=== PATIENT | female | born 1995 | race Caucasian/White ===

== ENCOUNTER 2017-10-31 02:07 | Emergency (ER) | payer SELFPAY ==
--- NOTE | 2017-10-31 02:18 | ER Report ---
History and Physical Time Seen By MD: 02:18 Hx. of Stated Complaint: pt started having right sided abdominal and flank pain last night. pt has been having "difficulty" urinating for the past week. HPI/ROS CHIEF COMPLAINT: Abdominal pain HISTORY OF PRESENT ILLNESS: This is a 22-year-old female. She's been having abdominal and flank pain since last night. This is on the right side. Worsens with movement. Difficulty urinating for about 3 weeks now. No history of kidney stones. She has had a few urinary tract infections and states that this is a little different because she is not having any dysuria. She did have an several weeks ago but never had a follow-up. Her bleeding has decreased to some spotting the last few days. She denies any other discharge. No fevers or chills. She has noticed a little heart racing. She was looking up symptoms on [employer] and is worried that she may have septic shock. No shortness of breath or chest pain. No nausea or vomiting. Allergies: Coded Allergies: No Known Drug Allergies (Unverified , 10/31/17) Home Meds Active Scripts Ondansetron (ZOFRAN ODT) 4 Mg Tab.rapdis, 4 MG PO Q6H Y for NAUSEA/VOMITING, # 20 TAB.MAIK 0 Refills Prov:BETSY RIVERA MD 10/31/17 Hydrocodone Bit/Acetaminophen (HYDROCODON-ACETAMINOPHEN 5-325) 1 Each Tablet, 1 EACH PO Q4H Y for PAIN, #12 TAB 0 Refills Prov:BETSY RIVERA MD 10/31/17 Sulfamethoxazole/Trimet 800-160 Mg Tab (BACTRIM DS TABLET) 1 Each Tablet, 1 TAB PO Q12H, #20 TAB 0 Refills Prov:BETSY RIVERA MD 10/31/17 Reviewed Nurses Notes: Yes Hx Substance Use Disorder: Yes Hx Alcohol Use: No Constitutional Vital Sign - Last 24 Hours 10/31/17 10/31/17 10/31/17 10/31/17 02:11 02:30 02:45 03:00 Temp 97.5 Pulse 103 108 100 103 Resp 18 B/P (MAP) 122/84 103/68 (80) 100/78 (85) Pulse Ox 98 95 99 94 O2 Delivery Room Air 10/31/17 10/31/17 10/31/17 10/31/17 03:45 04:00 04:15 05:22 Pulse 105 104 101 85 Resp 16 B/P (MAP) 107/71 (83) 102/78 (86) Pulse Ox 95 92 O2 Delivery Room Air Physical Exam General Appearance: The patient is alert. No acute distress. Non-toxic in appearance. Eyes: Pupils are equal, round. No pallor, injection or icterus. ENT: Mucous membranes are moist. Normal oral mucosa. Posterior oropharynx is normal. Neck: Supple and non tender. Respiratory: Lungs are clear to auscultation. Cardiovascular: Regular rate and rhythm. No murmurs, gallops or rubs. Normal capillary refill. Gastrointestinal: Abdomen is soft, tender in the right lower quadrant. Guarding but no rebound. Nondistended. Normal active bowel sounds. Has right-sided CVA tenderness. Neurological: Alert and oriented x3. Skin: Warm and dry. No rashes. Musculoskeletal: Extremities are nontender. No tenderness in palpation of the thoracic and lumbar spine and bacteria other than the CVA tenderness. DIFFERENTIAL DIAGNOSIS: After history and physical exam, differential diagnosis was considered for abdominal pain including but not limited to appendicitis, cholecystitis, gastritis and urinary tract infection. Medical Decision Making Data Points Result Diagram: 10/31/17 0240 10/31/17 0240 Laboratory Hematology Test 10/31/17 02:40 10/31/17 03:33 Red Blood Count 4.57 M/uL (4.17-5.56) Mean Corpuscular Volume 86.4 fL (80.0-96.0) Mean Corpuscular Hemoglobin 30.2 pg (26.0-33.0) Mean Corpuscular Hemoglobin Concent 34.9 g/dL (32.0-36.0) Red Cell Distribution Width 12.9 % (11.5-14.5) Mean Platelet Volume 8.5 fL (7.2-11.1) Neutrophils (%) (Auto) 65.7 % (39.4-72.5) Lymphocytes (%) (Auto) 23.5 % (17.6-49.6) Monocytes (%) (Auto) 6.9 % (4.1-12.4) Eosinophils (%) (Auto) 2.7 % (0.4-6.7) Basophils (%) (Auto) 1.2 % (0.3-1.4) Nucleated RBC Relative Count (auto) 0.0 /100WBC Neutrophils # (Auto) 7.0 K/uL (2.0-7.4) Lymphocytes # (Auto) 2.5 K/uL (1.3-3.6) Monocytes # (Auto) 0.7 K/uL (0.3-1.0) Eosinophils # (Auto) 0.3 K/uL (0.0-0.5) Basophils # (Auto) 0.1 K/uL (0.0-0.1) Nucleated RBC Absolute Count (auto) 0.00 K/uL Sodium Level 138 mmol/L (137-145) Potassium Level 3.7 mmol/L (3.5-5.0) Chloride Level 100 mmol/L (98-107) Carbon Dioxide Level 29 mmol/L (22-31) Blood Urea Nitrogen 13 mg/dl (7-18) Creatinine 0.60 mg/dl (0.52-1.04) Glomerular Filtration Rate Calc > 60.0 Random Glucose 114 mg/dl (75-110) Lactate 1.1 mmol/L (0.7-2.1) Calcium Level 9.1 mg/dl (8.4-10.2) Total Bilirubin 0.7 mg/dl (0.2-1.3) Aspartate Amino Transf (AST/SGOT) 22 U/L (0-35) Alanine Aminotransferase (ALT/SGPT) 22 U/L (0-56) Alkaline Phosphatase 58 U/L (0-126) C-Reactive Protein 2.9 mg/dl (<1.0) Total Protein 7.4 g/dl (6.3-8.2) Albumin 4.3 g/dl (3.5-5.0) Amylase Level 72 U/L (0-110) Lipase 38 U/L (23-300) Human Chorionic Gonadotropin, Qual Negative (NEGATIVE) Urine Color Yellow Urine Clarity Cloudy Urine pH 6.0 pH (4.8-9.5) Urine Specific [place] 1.046 Urine Protein 100 mg/dL (NEGATIVE) Urine Glucose (UA) Negative mg/dL (NEGATIVE) Urine Ketones Negative mg/dL (NEGATIVE) Urine Blood Negative (NEGATIVE) Urine Nitrite Positive (NEGATIVE) Urine Bilirubin Negative (NEGATIVE) Urine Urobilinogen 2.0 mg/dL (0.2-1.9) Urine Leukocyte Esterase Large (NEGATIVE) Urine RBC 6 /HPF (0-2/HPF) Urine WBC 679 /HPF (0-5/HPF) Urine WBC Clumps Few /HPF Urine Squamous Epithelial Cells Many /LPF (</=FEW) Urine Transitional Epithelial Cells Many /LPF (NONE-FEW) Urine Bacteria Few /HPF (NONE-FEW) Urine Mucus Few /HPF (NONE-FEW) Chemistry Test 10/31/17 02:40 10/31/17 03:33 White Blood Count 10.7 k/uL (4.5-11.0) Red Blood Count 4.57 M/uL (4.17-5.56) Hemoglobin 13.8 g/dL (12.0-16.0) Hematocrit 39.5 % (34.0-47.0) Mean Corpuscular Volume 86.4 fL (80.0-96.0) Mean Corpuscular Hemoglobin 30.2 pg (26.0-33.0) Mean Corpuscular Hemoglobin Concent 34.9 g/dL (32.0-36.0) Red Cell Distribution Width 12.9 % (11.5-14.5) Platelet Count 323 K/uL (150-450) Mean Platelet Volume 8.5 fL (7.2-11.1) Neutrophils (%) (Auto) 65.7 % (39.4-72.5) Lymphocytes (%) (Auto) 23.5 % (17.6-49.6) Monocytes (%) (Auto) 6.9 % (4.1-12.4) Eosinophils (%) (Auto) 2.7 % (0.4-6.7) Basophils (%) (Auto) 1.2 % (0.3-1.4) Nucleated RBC Relative Count (auto) 0.0 /100WBC Neutrophils # (Auto) 7.0 K/uL (2.0-7.4) Lymphocytes # (Auto) 2.5 K/uL (1.3-3.6) Monocytes # (Auto) 0.7 K/uL (0.3-1.0) Eosinophils # (Auto) 0.3 K/uL (0.0-0.5) Basophils # (Auto) 0.1 K/uL (0.0-0.1) Nucleated RBC Absolute Count (auto) 0.00 K/uL Glomerular Filtration Rate Calc > 60.0 Lactate 1.1 mmol/L (0.7-2.1) Calcium Level 9.1 mg/dl (8.4-10.2) Total Bilirubin 0.7 mg/dl (0.2-1.3) Aspartate Amino Transf (AST/SGOT) 22 U/L (0-35) Alanine Aminotransferase (ALT/SGPT) 22 U/L (0-56) Alkaline Phosphatase 58 U/L (0-126) C-Reactive Protein 2.9 mg/dl (<1.0) Total Protein 7.4 g/dl (6.3-8.2) Albumin 4.3 g/dl (3.5-5.0) Amylase Level 72 U/L (0-110) Lipase 38 U/L (23-300) Human Chorionic Gonadotropin, Qual Negative (NEGATIVE) Urine Color Yellow Urine Clarity Cloudy Urine pH 6.0 pH (4.8-9.5) Urine Specific [place] 1.046 Urine Protein 100 mg/dL (NEGATIVE) Urine Glucose (UA) Negative mg/dL (NEGATIVE) Urine Ketones Negative mg/dL (NEGATIVE) Urine Blood Negative (NEGATIVE) Urine Nitrite Positive (NEGATIVE) Urine Bilirubin Negative (NEGATIVE) Urine Urobilinogen 2.0 mg/dL (0.2-1.9) Urine Leukocyte Esterase Large (NEGATIVE) Urine RBC 6 /HPF (0-2/HPF) Urine WBC 679 /HPF (0-5/HPF) Urine WBC Clumps Few /HPF Urine Squamous Epithelial Cells Many /LPF (</=FEW) Urine Transitional Epithelial Cells Many /LPF (NONE-FEW) Urine Bacteria Few /HPF (NONE-FEW) Urine Mucus Few /HPF (NONE-FEW) Urinalysis Test 10/31/17 03:33 Urine Color Yellow Urine Clarity Cloudy Urine pH 6.0 pH (4.8-9.5) Urine Specific [place] 1.046 Urine Protein 100 mg/dL (NEGATIVE) Urine Glucose (UA) Negative mg/dL (NEGATIVE) Urine Ketones Negative mg/dL (NEGATIVE) Urine Blood Negative (NEGATIVE) Urine Nitrite Positive (NEGATIVE) Urine Bilirubin Negative (NEGATIVE) Urine Urobilinogen 2.0 mg/dL (0.2-1.9) Urine Leukocyte Esterase Large (NEGATIVE) Urine RBC 6 /HPF (0-2/HPF) Urine WBC 679 /HPF (0-5/HPF) Urine WBC Clumps Few /HPF Urine Squamous Epithelial Cells Many /LPF (</=FEW) Urine Transitional Epithelial Cells Many /LPF (NONE-FEW) Urine Bacteria Few /HPF (NONE-FEW) Urine Mucus Few /HPF (NONE-FEW) EKG/Imaging Imaging ABDOMEN/PELVIS WITH CONTRAST HISTORY: Right lower abdominal pain. COMPARISON: None. TECHNIQUE: Axial images were obtained from the lung bases through the symphysis pubis with intravenous contrast. Sagittal and coronal reformats were performed. One of the following dose optimization techniques was utilized in the performance of this exam: Automated exposure control; adjustment of the mA and/ or kV according to the patient's size; or use of an iterative reconstruction technique. Specific details can be referenced in the facility's radiology CT exam operational policy. CONTRAST: 75 mm IV [id number]. FINDINGS: Lower chest: Normal. Liver: Normal. Gallbladder/biliary: There is a partially calcified stone within the gallbladder. There is enhancement of the gallbladder fundus. No pericholecystic fluid. No intrahepatic or extrahepatic ductal dilation. Pancreas: Normal. Spleen: There is a 1.3 cm cyst of the superior spleen (sagittal image 80 series 6), and there is a smaller too small to characterize low attenuating lesion in the posterior superior spleen (image 29 series 2) that is statistically likely to represent a benign cyst. Adrenals: Normal. Kidneys/ureters/bladder: There is mild right hydronephrosis and hydroureter, and there is diffuse peripheral enhancement of the right renal pelvis, calyces, and of the entire right ureter, as well as right periureteral stranding and a small amount of periureteral fluid. No obstructing or nonobstructing calculus. The right kidney enhances normally without evidence of pyelonephritis. The left kidney, the left ureter, and the bladder are normal. GI/mesentery/peritoneal cavity: There is no bowel obstruction. There is no wall thickening or pericolonic stranding. The appendix is normal. There is no intra- abdominal free air or free fluid. Vessels: No aneurysm or significant atherosclerotic disease. No dissection. Nodes: Normal. Pelvis: Uterus and ovaries are normal. No free fluid. There are phleboliths. Bones/vertebra/soft tissues: Normal. IMPRESSION: 1. Diffuse urothelial enhancement on the right and mild right hydronephrosis and periureteral stranding. No obstructing or nonobstructing calculus. Findings are compatible with pyelitis. No CT evidence for pyelonephritis. 2. Cholelithiasis and mild enhancement of the gallbladder fundus, but no pericholecystic fluid or gallbladder wall thickening to suggest cholecystitis. 3. Normal appendix. Report Dictated By: Joy Amor at 10/31/2017 3:46 AM ED Course/Re-evaluation Clinical Indication for ER IV: Hydration, IV Access ED Course Improved with a liter of normal saline and Morphine 4mg IV and Zofran 4mg IV. CT scan and urinalysis consistent with urinary tract infection. Normal lactic acid and normal white blood cell count. Discussed results with the patient. Given a second liter of saline, another dose of Morphine 4mg and then Rocephin 1g IV. Home with Bactrim DS twice a day for 7 days. Decision to Disposition Date: Oct 31, 2017 Decision to Disposition Time: 04:23 Depart Departure Latest Vital Signs Vital Signs Date Time Temp Pulse Resp B/P (MAP) Pulse Ox O2 Delivery O2 Flow Rate FiO2 10/31/17 05:22 85 16 102/78 (86) 92 Room Air 10/31/17 02:11 97.5 Impression: Primary Impression: Urinary tract infection Condition: Improved Disposition: HOME OR SELF-CARE New Scripts Ondansetron (ZOFRAN ODT) 4 Mg Tab.rapdis 4 MG PO Q6H Y for NAUSEA/VOMITING, #20 TAB.MAIK 0 Refills Prov: BETSY RIVERA MD 10/31/17 Hydrocodone Bit/Acetaminophen (HYDROCODON-ACETAMINOPHEN 5-325) 1 Each Tablet 1 EACH PO Q4H Y for PAIN, #12 TAB 0 Refills Prov: BETSY RIVERA MD 10/31/17 Sulfamethoxazole/Trimet 800-160 Mg Tab (BACTRIM DS TABLET) 1 Each Tablet 1 TAB PO Q12H, #20 TAB 0 Refills Prov: BETSY RIVERA MD 10/31/17 Patient Instructions: Urinary Tract Infection in Women (ED) Additional Instructions: Take the antibiotic Bactrim DS twice a day for 10 days. Increase fluid intake and rest the next few days. For pain, use over the counter Ibuprofen 200mg tablets, take 4 tablets every 8 hours as needed for pain. For more severe pain, you can use Lortab 5/325, one every 4 hours as needed. For nausea, take Zofran 4mg, one every 6 hours as needed. Problem Qualifiers Primary Impression: Urinary tract infection Urinary tract infection type: acute cystitis Hematuria presence: without hematuria Qualified Codes: N30.00 - Acute cystitis without hematuria BETSY RIVERA MD Oct 31, 2017 02:18
[2017-10-31] MEDS ORDERED: NS(*) 0.9% 1000 ML BAG 1,000 ML IV ONE ×2 (02:27→04:15)
[2017-10-31] MEDS ORDERED: ONDANSETRON 4 MG/2 ML VIAL IVP ONE (02:30)
[2017-10-31] MEDS ORDERED: MORPHINE 4 MG/ML SDV IVP ONE ×2 (02:30→04:15)
[2017-10-31] MEDS ORDERED: IOPAMIDOL 76% 100 ML INFUS BTL 100 ML ONE (02:49)
[2017-10-31 02:54] LABS: PLATELET COUNT, AUTOMATED 323 K/uL (150-450)
--- NOTE | 2017-10-31 04:03 | RADIOLOGY IMAGING REPORT ---
FACILITY: [facility] - [place] PATIENT NAME: Rodolfo Nava : 1995 MR: [id number] V: [id number] EXAM DATE: ORDERING PHYSICIAN: BETSY RIVERA TECHNOLOGIST: Location: [facility] [place] Patient: Rodolfo Nava : 1995 Visit/Account:[id number] Date of Sevice: 10/31/2017 ABDOMEN/PELVIS WITH CONTRAST HISTORY: Right lower abdominal pain. COMPARISON: None. TECHNIQUE: Axial images were obtained from the lung bases through the symphysis pubis with intravenou s contrast. Sagittal and coronal reformats were performed. One of the following dose optimization techniques was utilized in the performance of this exam: Autom ated exposure control; adjustment of the mA and/or kV according to the patient's size; or use of an i terative reconstruction technique. Specific details can be referenced in the facility's radiology CT exam operational policy. CONTRAST: 75 mm IV [id number]. FINDINGS: Lower chest: Normal. Liver: Normal. Gallbladder/biliary: There is a partially calcified stone within the gallbladder. There is enhancemen t of the gallbladder fundus. No pericholecystic fluid. No intrahepatic or extrahepatic ductal dilatio n. Pancreas: Normal. Spleen: There is a 1.3 cm cyst of the superior spleen (sagittal image 80 series 6), and there is a sm aller too small to characterize low attenuating lesion in the posterior superior spleen (image 29 ser ies 2) that is statistically likely to represent a benign cyst. Adrenals: Normal. Kidneys/ureters/bladder: There is mild right hydronephrosis and hydroureter, and there is diffuse per ipheral enhancement of the right renal pelvis, calyces, and of the entire right ureter, as well as ri ght periureteral stranding and a small amount of periureteral fluid. No obstructing or nonobstructing calculus. The right kidney enhances normally without evidence of pyelonephritis. The left kidney, th e left ureter, and the bladder are normal. GI/mesentery/peritoneal cavity: There is no bowel obstruction. There is no wall thickening or pericol onic stranding. The appendix is normal. There is no intra-abdominal free air or free fluid. Vessels: No aneurysm or significant atherosclerotic disease. No dissection. Nodes: Normal. Pelvis: Uterus and ovaries are normal. No free fluid. There are phleboliths. Bones/vertebra/soft tissues: Normal. IMPRESSION: 1. Diffuse urothelial enhancement on the right and mild right hydronephrosis and periureteral strandi ng. No obstructing or nonobstructing calculus. Findings are compatible with pyelitis. No CT evidence for pyelonephritis. 2. Cholelithiasis and mild enhancement of the gallbladder fundus, but no pericholecystic fluid or gal lbladder wall thickening to suggest cholecystitis. 3. Normal appendix. Report Dictated By: Joy Amor at 10/31/2017 3:46 AM Report E-Signed By: Joy Amor at 10/31/2017 3:58 AM WSN:[id number]
[2017-10-31] MEDS ORDERED: cefTRIAXone(*) 1 GM VIAL 1 GM in NS(*) 0.9% 100 ML ADDVANT BAG 100 ML IVPB ONE (04:15)
[2017-10-31] MEDS ORDERED: LOR5/325 PO (05:13)
[2017-10-31] MEDS ORDERED: ONDA4TAB PO (05:13)
[2017-10-31] MEDS ORDERED: SULF-198 PO (05:13)
[2017-10-31] MEDS ORDERED: ONDANSETRON 4 MG ODT TH SL ONE (05:15)
[2017-10-31] MEDS ORDERED: ACET/HYDROC 5/325MG TH ER ONLY 2 TAB/BOTTLE PO ONE (05:15)
[2017-10-31 05:22] VITALS: BP 102/78
== END 2017-10-31 05:24 | disposition home or self-care (01) ==
LOC: ER 02:15
DX: N39.0 Urinary tract infection, site not specified (principal); B96.20 Unspecified Escherichia coli [E. coli] as the cause of diseases classified elsewhere
CPT/HCPCS: 74177; 81001; 82150; 83605; 83690; 84703; 85025; 86140; 87077; 87088; 87186; 96361; 96365; 96375; 96376; 99284; J0696; J2270; J2405; J7030; J7050; Q9967; S0119; 82040; 82247; 82310; 82374; 82435; 82565; 82947; 84075; 84132; 84155; 84295; 84450; 84460; 84520